=== PATIENT | male | born 1980 | race Hispanic/Latino ===

== ENCOUNTER 2020-08-29 20:04 | Emergency (ER) | payer BC ==
[~2020-08-29] VITALS: Ht 165.1 cm; Wt 77.1 kg
[2020-08-29] MEDS ORDERED: KETOROLAC TROMETHAMINE 60 MG/2 ML VIAL IM ONE (20:45)
[2020-08-29] MEDS ORDERED: KETOROLAC TROMETHAMINE 60 MG/2 ML VIAL ONE (21:05)
[2020-08-29 21:40] VITALS: BP 137/96
== END 2020-08-29 21:40 | disposition home or self-care (01) ==
LOC: FSED 20:33
DX: R51.9 Headache, unspecified (principal); E78.00 Pure hypercholesterolemia, unspecified; E86.1 Hypovolemia; E86.0 Dehydration
CPT/HCPCS: 70450; 96372; 99283; J1885